=== PATIENT | female | born 1965 | race Caucasian/White ===

== ENCOUNTER 2017-11-11 22:57 | Emergency (ER) | payer OTHER ==
--- NOTE | 2017-11-12 00:12 | ED ---
Freda Quiñones Jade, scribed for Farzana Servin MD on 11/11/17 at 2323 . Head Injury - HPI Summary HPI Summary: Pt is a 51 y/o female who presents to the ED s/p facial injury at 17:45. She states she slipped off a curb because of the rain, and fell on her chin. Pt denies any LOC or jaw pain. She states she also scuffed her knees, and felt somewhat dizzy after the fall because of the blood coming from her face. Pts upper lip feels numb. She applied Neosporin and ice to the wound. Pt is worried because she has to fly tomorrow evening. - History Of Current Complaint Chief Complaint: EDFacialInjury Stated Complaint: FALL/ FACIAL INJURY Time Seen by Provider: 11/11/17 23:06 Hx Obtained From: Patient Mechanism Of Injury: Fall From A Standing Position Onset/Duration: Started Hours Ago - 17:45, Still Present Onset of Pain: Immediate Severity Currently: Moderate Pain Intensity: 5 Pain Scale Used: 0-10 Numeric Location of Head Injury: Other: - Chin and upper lip Alleviating Factor(s): Ice Associated Signs And Symptoms: Swelling, Numbness - Allergies/Home Medications Allergies/Adverse Reactions: Allergies Allergy/AdvReac Type Severity Reaction Status Date / Time No Known Allergies Allergy Verified 11/11/17 23:04 PMH/Surg Hx/FS Hx/Imm Hx Endocrine/Hematology History: Reports: Other Endocrine/Hematological Disorders - Hypothyroidism Denies: Hx Diabetes Cardiovascular History: Denies: Hx Hypertension Infectious Disease History: No Infectious Disease History: Denies: Traveled Outside the [place] in Last 30 Days - Family History Known Family History: Negative: Hypertension, Diabetes - Social History Alcohol Use: None Substance Use Type: Reports: None Hx Tobacco Use: No Smoking Status (MU): Never Smoked Tobacco Review of Systems Negative: Other - Jaw pain Positive: Other - Abrasion/swelling lip Positive: Numbness - Lip All Other Systems Reviewed And Are Negative: Yes Physical Exam - Summary Physical Exam Summary: VITAL SIGNS: Reviewed. GENERAL: Patient is a well-developed and nourished FEMALE who is lying comfortable in the stretcher. Patient is not in any acute respiratory distress. HEAD AND FACE: No ecchymosis, hematomas or skull depressions. No sinus tenderness. Minor abrasion over upper lip and chin. No bleeding. EYES: PERRLA, EOMI x 2, No injected conjunctiva, no nystagmus. EARS: Hearing grossly intact. Ear canals and tympanic membranes are within normal limits. MOUTH: Superficial lacerations over mucosal surface of the upper lip. Mild- moderate swelling of upper lip. Teeth are normal and intact. Moves jaw with no pain. NECK: Supple, trachea is midline, no adenopathy, no JVD, no carotid bruit, no c- spine tenderness, neck with full ROM. CHEST: Symmetric, no tenderness at palpation LUNGS: Clear to auscultation bilaterally. No wheezing or crackles. CVS: Regular rate and rhythm, S1 and S2 present, no murmurs or gallops appreciated. ABDOMEN: Soft, non-tender. No signs of distention. No rebound no guarding, and no masses palpated. Bowel sounds are normal. EXTREMITIES: FROM in all major joints, no edema, no cyanosis or clubbing. NEURO: Alert and oriented x 3. No acute neurological deficits. Speech is normal and follows commands. SKIN: Dry and warm Triage Information Reviewed: Yes Vital Signs On Initial Exam: Initial Vitals Temp Pulse Resp BP Pulse Ox 97.9 F 85 16 136/92 96 11/11/17 23:01 11/11/17 23:01 11/11/17 23:01 11/11/17 23:01 11/11/17 23:01 Vital Signs Reviewed: Yes Diagnostics - Vital Signs Vital Signs Temp Pulse Resp BP Pulse Ox 11/11/17 23:01 97.9 F 85 16 136/92 96 - Laboratory Lab Statement: Any lab studies that have been ordered have been reviewed, and results considered in the medical decision making process. Head Injury Course/Dx Course Of Treatment: Pt is a 51 y/o female who presents to the ED s/p facial injury at 17:45. She also scuffed her knees, has numbness of her upper lip, and felt somewhat dizzy. Pt denies any LOC or jaw pain. A physical exam revealed minor abrasion over upper lip and chin, no bleeding, superficial lacerations over mucosal surface of the upper lip, mild-moderate swelling of upper lip, teeth are normal and intact, moves jaw with no pain. Final dx are contusion and abrasion. Pt is discharged home with 1 Percocet every 6 hours PRN. She is given instructions to use ice, avoid hot foods, and eat a soft diet. Pt is agreeable with this plan. - Diagnoses Provider Diagnoses: Contusion, Abrasion Discharge - Sign-Out/Discharge Documenting (check all that apply): Discharge/Admit/Transfer - Discharge - Discharge Plan Condition: Stable Disposition: HOME Patient Education Materials: Contusion in Adults (ED), Abrasion (ED) Referrals: [facility] [place] PHYSICIAN REFERRAL [Outside] - 2 Days Additional Instructions: RETURN TO THE EMERGENCY DEPARTMENT FOR CHANGING OR WORSENING SYMPTOMS. Take 1 Percocet every 6 hours as needed for pain. Apply ice to reduce swelling. Avoid warm/hot food, and follow a soft diet. The documentation as recorded by the Freda cardozo Jade accurately reflects the service I personally performed and the decisions made by , Farzana Servin MD.
[2017-11-12 03:37] VITALS: BP 123/95
== END 2017-11-12 00:30 | disposition home or self-care (01) ==
LOC: ED 22:57
DX: S00.83XA Contusion of other part of head, initial encounter (principal); S00.81XA Abrasion of other part of head, initial encounter; W19.XXXA Unspecified fall, initial encounter; Y92.9 Unspecified place or not applicable
CPT/HCPCS: 99282